=== PATIENT | female | born 1960 | race African-American/Black ===

== ENCOUNTER 2022-11-17 11:59 | Outpatient (CLI) | payer OTHER | END 2022-11-17 12:00 | disposition home or self-care (01) | LOC: NAV RAD 11:59 | PROVIDERS: ATTEND Family Medicine | DX: Z02.71 Encounter for disability determination (principal); M54.32 Sciatica, left side; M19.90 Unspecified osteoarthritis, unspecified site; M16.11 Unilateral primary osteoarthritis, right hip; M87.9 Osteonecrosis, unspecified | CPT/HCPCS: 72100; 72170 ==